=== PATIENT | male | born 1965 | race Caucasian/White ===

== ENCOUNTER 2019-07-27 08:01 | Day surgery (SDC) | payer OTHER ==
[~2019-07-27] VITALS: Ht 165.1 cm; Wt 65.3 kg
[2019-07-27] MEDS ORDERED: LIDOCAINE 2% 100 MG/5 ML UJET TP ONE (09:49)
== END 2019-07-27 11:30 | disposition home or self-care (01) ==
LOC: MDS 08:01 → MTU 08:35 → MDS 11:30
PROVIDERS: ATTEND Internal Medicine Gastroenterology
DX: K62.5 Hemorrhage of anus and rectum (principal)
CPT/HCPCS: 45350